=== PATIENT | male | born 1950 | race Caucasian/White ===

== ENCOUNTER → 2016-08-14 | Outpatient (CLI) | payer BC ==
[~2016-08-14] MED LIST: CMD5 PO
[2016-08-14 12:44] LABS: INR 2.5 (0.9-1.1); PROTHROMBIN TIME (PATIENT) 28.2 SECONDS (9.0-12.0)
== END | disposition home or self-care (01) ==
LOC: C.LABSPEC 14:24
PROVIDERS: ATTEND Family Medicine
DX: I82.402 Acute embolism and thrombosis of unspecified deep veins of left lower extremity (principal)

== ENCOUNTER → 2016-09-18 | Outpatient (CLI) | payer BC ==
[2016-09-18 11:34] LABS: INR 2.6 (0.9-1.1); PROTHROMBIN TIME (PATIENT) 28.8 SECONDS (9.0-12.0)
== END | disposition home or self-care (01) ==
LOC: C.LABSPEC 11:09
PROVIDERS: ATTEND Family Medicine
DX: I82.5Z9 Chronic embolism and thrombosis of unspecified deep veins of unspecified distal lower extremity (principal)

== ENCOUNTER → 2016-10-23 | Outpatient (CLI) | payer BC ==
[2016-10-23 14:43] LABS: INR 3.2 (0.9-1.1); PROTHROMBIN TIME (PATIENT) 36.1 SECONDS (9.0-12.0)
== END | disposition home or self-care (01) ==
LOC: C.LABSPEC 13:53
PROVIDERS: ATTEND Family Medicine
DX: I82.5Z9 Chronic embolism and thrombosis of unspecified deep veins of unspecified distal lower extremity (principal)

== ENCOUNTER → 2016-11-11 | Outpatient (CLI) | payer BC ==
[2016-11-11 13:07] LABS: INR 1.3 (0.9-1.1); PROTHROMBIN TIME (PATIENT) 14.6 SECONDS (9.0-12.0)
[2016-11-11 13:09] LABS: CALCIUM 10.1 mg/dl (8.5-10.1)
[2016-11-11 13:20] LABS: ALT/SGPT 41 U/L (12-78); BLOOD UREA NITROGEN 21 mg/dl (7-18); BUN/CREATININE RATIO 21.4 (10-20); CARBON DIOXIDE 26 mmol/L (21-32); CHLORIDE 107 mmol/L (98-107); CHOLESTEROL 214 mg/dl (0-200); CREATININE 0.98 mg/dl (0.60-1.40); GLUCOSE 86 mg/dl (70-99); POTASSIUM 4.4 mmol/L (3.5-5.1); SODIUM 140 mmol/L (136-145); TRIGLYCERIDES 121 mg/dl (0-150); VERY LOW DENSITY LIPOPROT CALC 24 mg/dl
[2016-11-11 13:25] LABS: ALB/GLOB RATIO 1.4 (0.9-2); ALKALINE PHOSPHATASE 67 U/L (45-117); AST/SGOT 22 U/L (15-37); HDL CHOLESTEROL 54 mg/dl; LDL CHOLESTEROL CALCULATED 136 mg/dl
== END | disposition home or self-care (01) ==
LOC: C.LABSPEC 11:23
PROVIDERS: ATTEND Family Medicine
DX: I82.5Z9 Chronic embolism and thrombosis of unspecified deep veins of unspecified distal lower extremity (principal); E78.2 Mixed hyperlipidemia

== ENCOUNTER → 2016-12-10 | Outpatient (CLI) | payer BC ==
[2016-12-10 12:38] LABS: INR 2.9 (0.9-1.1); PROTHROMBIN TIME (PATIENT) 32.8 SECONDS (9.0-12.0)
== END | disposition home or self-care (01) ==
LOC: C.LABSPEC 11:38
PROVIDERS: ATTEND Family Medicine
DX: I82.5Z9 Chronic embolism and thrombosis of unspecified deep veins of unspecified distal lower extremity (principal)

== ENCOUNTER → 2017-01-25 | Outpatient (CLI) | payer BC ==
[2017-01-25 16:36] LABS: INR 2.3 (0.9-1.1); PROTHROMBIN TIME (PATIENT) 25.4 SECONDS (9.0-12.0)
== END | disposition home or self-care (01) ==
LOC: C.LABSPEC 16:07
PROVIDERS: ATTEND Family Medicine
DX: I82.402 Acute embolism and thrombosis of unspecified deep veins of left lower extremity (principal)

== ENCOUNTER → 2017-02-22 | Outpatient (CLI) | payer BC ==
[2017-02-22 17:10] LABS: INR 2.6 (0.9-1.1); PROTHROMBIN TIME (PATIENT) 29.4 SECONDS (9.0-12.0)
== END | disposition home or self-care (01) ==
LOC: C.LABSPEC 16:32
PROVIDERS: ATTEND Family Medicine
DX: I82.402 Acute embolism and thrombosis of unspecified deep veins of left lower extremity (principal)

== ENCOUNTER → 2017-04-12 | Outpatient (CLI) | payer BC ==
[2017-04-12 14:44] LABS: INR 2.6 (0.9-1.1); PROTHROMBIN TIME (PATIENT) 29.4 SECONDS (9.0-12.0)
[2017-04-12 14:57] LABS: ALT/SGPT 36 U/L (12-78); AST/SGOT 23 U/L (15-37); BLOOD UREA NITROGEN 11 mg/dl (7-18); BUN/CREATININE RATIO 12.7 (10-20); CARBON DIOXIDE 26 mmol/L (21-32); CHLORIDE 106 mmol/L (98-107); CHOLESTEROL 203 mg/dl (0-200); CREATININE 0.86 mg/dl (0.60-1.40); GLUCOSE 93 mg/dl (70-99); POTASSIUM 4.4 mmol/L (3.5-5.1); SODIUM 140 mmol/L (136-145)
[2017-04-12 15:05] LABS: ALB/GLOB RATIO 1.4 (0.9-2); ALKALINE PHOSPHATASE 67 U/L (45-117); HDL CHOLESTEROL 41 mg/dl; LDL CHOLESTEROL CALCULATED 104 mg/dl; TRIGLYCERIDES 289 mg/dl (0-150); VERY LOW DENSITY LIPOPROT CALC 58 mg/dl
== END | disposition home or self-care (01) ==
LOC: C.LABSPEC 13:35
PROVIDERS: ATTEND Family Medicine
DX: D68.4 Acquired coagulation factor deficiency (principal); E78.2 Mixed hyperlipidemia

== ENCOUNTER → 2017-05-28 | Outpatient (CLI) | payer BC ==
[2017-05-28 14:07] LABS: INR 2.6 (0.9-1.1); PROTHROMBIN TIME (PATIENT) 29.4 SECONDS (9.0-12.0)
== END | disposition home or self-care (01) ==
LOC: C.LABSPEC 12:56
PROVIDERS: ATTEND Family Medicine
DX: I82.402 Acute embolism and thrombosis of unspecified deep veins of left lower extremity (principal); I82.4Z1 Acute embolism and thrombosis of unspecified deep veins of right distal lower extremity; I82.502 Chronic embolism and thrombosis of unspecified deep veins of left lower extremity; I82.5Z9 Chronic embolism and thrombosis of unspecified deep veins of unspecified distal lower extremity; Z86.711 Personal history of pulmonary embolism

== ENCOUNTER → 2017-07-20 | Outpatient (CLI) | payer BC ==
[2017-07-20 16:17] LABS: INR 2.9 (0.9-1.1)
== END | disposition home or self-care (01) ==
LOC: C.LABSPEC 15:31
PROVIDERS: ATTEND Family Medicine
DX: E78.2 Mixed hyperlipidemia (principal); D68.4 Acquired coagulation factor deficiency

== ENCOUNTER → 2017-08-31 | Outpatient (CLI) | payer BC ==
[2017-08-31 12:48] LABS: INR 1.8 (0.9-1.1)
== END | disposition home or self-care (01) ==
LOC: C.LABSPEC 11:58
PROVIDERS: ATTEND Family Medicine
DX: D68.4 Acquired coagulation factor deficiency (principal)

== ENCOUNTER → 2017-09-28 | Outpatient (CLI) | payer BC ==
[2017-09-28 12:32] LABS: INR 2.3 (0.9-1.1)
== END | disposition home or self-care (01) ==
LOC: C.LABSPEC 11:29
PROVIDERS: ATTEND Family Medicine
DX: D68.4 Acquired coagulation factor deficiency (principal)

== ENCOUNTER → 2017-10-21 | Outpatient (CLI) | payer BC ==
[2017-10-21 14:05] LABS: INR 2.3 (0.9-1.1)
[2017-10-21 14:18] LABS: HEMOGLOBIN A1C 5.8 % (4.5-5.6)
[2017-10-21 14:24] LABS: ALBUMIN 3.9 gm/dl (3.4-5.0); ALT/SGPT 40 U/L (12-78); BLOOD UREA NITROGEN 16 mg/dl (7-18); CALCIUM 9.6 mg/dl (8.5-10.1); CARBON DIOXIDE 28 mmol/L (21-32); CHOLESTEROL 197 mg/dl (0-200); CREATININE 0.98 mg/dl (0.60-1.40); GLUCOSE 89 mg/dl (70-99); POTASSIUM 4.4 mmol/L (3.5-5.1); SODIUM 139 mmol/L (136-145)
[2017-10-21 14:27] LABS: ALKALINE PHOSPHATASE 66 U/L (45-117); AST/SGOT 22 U/L (15-37); LDL CHOLESTEROL CALCULATED 126 mg/dl; TOTAL PROTEIN 6.9 gm/dl (6.4-8.2)
== END | disposition home or self-care (01) ==
LOC: C.LABSPEC 13:42
PROVIDERS: ATTEND Family Medicine
DX: D68.4 Acquired coagulation factor deficiency (principal); E78.2 Mixed hyperlipidemia; R73.01 Impaired fasting glucose

== ENCOUNTER → 2017-12-01 | Outpatient (CLI) | payer MEDICARE ==
[2017-12-01 16:07] LABS: INR 2.1 (0.9-1.1)
== END | disposition home or self-care (01) ==
LOC: C.LABSPEC 11:53
PROVIDERS: ATTEND Family Medicine
DX: D68.4 Acquired coagulation factor deficiency (principal)

== ENCOUNTER → 2018-02-17 | Outpatient (CLI) | payer MEDICARE ==
[2018-02-17 12:03] LABS: INR 1.5 (0.9-1.1)
[2018-02-17 12:05] LABS: ALBUMIN 3.7 gm/dl (3.4-5.0); ALKALINE PHOSPHATASE 66 U/L (45-117); ALT/SGPT 39 U/L (12-78); AST/SGOT 22 U/L (15-37); BLOOD UREA NITROGEN 13 mg/dl (7-18); CARBON DIOXIDE 26 mmol/L (21-32); CHOLESTEROL 196 mg/dl (0-200); CREATININE 0.93 mg/dl (0.60-1.40); GLUCOSE 96 mg/dl (70-99); LDL CHOLESTEROL CALCULATED 112 mg/dl; POTASSIUM 4.4 mmol/L (3.5-5.1); SODIUM 141 mmol/L (136-145); TOTAL PROTEIN 6.6 gm/dl (6.4-8.2)
[2018-02-17 12:13] LABS: HEMOGLOBIN A1C 5.9 % (4.5-5.6)
== END | disposition home or self-care (01) ==
LOC: C.LABSPEC 11:31
PROVIDERS: ATTEND Family Medicine
DX: D68.4 Acquired coagulation factor deficiency (principal); E78.2 Mixed hyperlipidemia; R73.01 Impaired fasting glucose

== ENCOUNTER 2021-05-27 17:20 | Observation (INO) ==
[2021-05-27 19:13] LABS: Basophils # (auto) 0.02 K/uL (0-0.2); Basophils % (auto) 0.2 %; Eosinophils # (auto) 0.03 K/uL (0-0.5); Eosinophils % (auto) 0.3 %; Hematocrit (blood only) 43.6 % (42-52); Immature Granulocytes # (auto) 0.03 K/uL (0.00-0.02); Immature Granulocytes % (auto) 0.3 %; Lymphocytes # (auto) 0.96 K/uL (1.2-3.4); Lymphocytes % (auto) 9.4 %; Mean Corpuscular Hemoglobin 33.1 pg (25-34); Mean Corpuscular Hgb Conc 34.4 g/dL (32-36); Mean Corpuscular Volume 96.2 fL (80-100); Mean Platelet Volume 10.1 fL (7.4-10.4); Monocytes # (auto) 0.89 K/uL (0.11-0.59); Monocytes % (auto) 8.7 %; Neutrophils # (auto) 8.31 K/uL (1.4-6.5); Neutrophils % (auto) 81.1 %; Platelet Count 246 K/uL (130-400); RDW Coefficient of Variation 13.2 % (11.5-14.5); RDW Standard Deviation 46.2 fL (36.4-46.3); Red Blood Count 4.53 M/uL (4.7-6.1); White Blood Count 10.24 K/uL (4.8-10.8)
[2021-05-27 19:31] LABS: Albumin Level 3.7 gm/dl (3.4-5.0); BUN Creatinine Ratio 20.5 (10-20); Calcium 10.3 mg/dl (8.5-10.1); Creatinine Clr Calc Pharmacy 85.6 ml/min; Est GFR (African American) 101.1 ml/min; Est GFR (Non-African American) 87.2 ml/min; Potassium 4.3 mmol/L (3.5-5.1)
[2021-05-27 19:34] LABS: Bilirubin,Total 0.4 mg/dl (0.2-1); Globulin 3.6 gm/dl (2.5-4.0); Total Protein 7.3 gm/dl (6.4-8.2)
[2021-05-27 19:35] LABS: Appearance Urine Clear (Clear); Bilirubin Urine Negative (Negative); Blood Urine Negative (Negative); Color Urine Yellow; Glucose Urine UA Negative (Negative); Ketones Urine Negative (Negative); Leukocyte Esterase Urine Negative (Negative); Nitrite Urine Negative (Negative); Protein Urine Negative (Negative); Specific Gravity Urine 1.029 (1.000-1.030); Urobilinogen Urine Negative (Negative)
[2021-05-27] MEDS ORDERED: ONDANSETRON INJ 2 MG/ML 2 ML VIAL IV STA (20:02)
[2021-05-27] MEDS ORDERED: SODIUM CHLORIDE 0.9% 500 ML IV ONE (20:02)
[2021-05-27] MEDS ORDERED: MoRPHine SULFATE 4 MG/ML 1 ML CARP\\VIAL IV STA (20:08)
--- NOTE | 2021-05-27 20:11 | Emergency Department Note ---
Impression & Plan Abdominal pain, Rectus sheath hematoma, Chronic anticoagulation, Extravasation of blood ED Provider Note NAME: MICHAEL WU AGE: 70 SEX: M : 1950 ARRIVES VIA: Walk-In INFORMANT: Patient ED PROVIDER(S): Norbert Patel DO CHIEF COMPLAINT: Abdominal pain HPI: Patient is a 70-year-old male who presents ER for right lower quadrant abdominal pain. He has been having pain intermittently for the past 2 weeks. He thinks is probably the same pain but is in the 100% sure. This morning started in the right lower quadrant has been constant. He has associated nausea but no vomiting. No dysuria, urgency, or frequency. It does radiate out to the right side. No cough or runny nose. No loss of taste or smell. No previous abdominal surgeries with the exception of a hernia repair. No other exacerbating or remitting factors. ROS: See above HPI for pertinent positives & negatives. A total of 10 systems reviewed and were otherwise negative. PAST MEDICAL HISTORY:See Below PAST SURGICAL HISTORY:See Below FAMILY HISTORY:See Below SOCIAL HISTORY:See Below HOME MEDICATIONS:See Below ALLERGIES:See Below VITALS:See Below PHYSICAL EXAMINATION: GENERAL: Sitting up in bed, alert, well appearing, well nourished, no distress, non-toxic EYE EXAM: normal conjunctiva. OROPHARYNX: mask in place NECK: supple, no nuchal rigidity, no adenopathy, non-tender LUNGS: Clear to auscultation. Normal chest wall mechanics HEART: no murmurs, S1 normal and S2 normal ABDOMEN: abdomen soft, tender palpation right lower, normo-active bowel sounds, no masses, no rebound or guarding. UPPER EXTREMITIES: upper extremities are grossly normal. LOWER EXTREMITIES: No pitting edema. Calves are ago bilateral NEURO EXAM: Normal sensorium, cranial nerves II-XII grossly intact, normal speech, no gross weakness of arms, no gross weakness of legs. MEDICAL DECISION MAKING: Patient is a 70-year-old male whose vitals are stable with mild bradycardia that presents the ER for right lower quadrant abdominal pain Coumadin. Takes Coumadin for previous blood clot several years ago. IV was established blood was obtained. Labs show no significant leukocytosis. Hemoglobin of 15. INR at 2.5. BMP with a slightly elevated chloride at 110. Calcium was slightly high at 10.3. LFTs bilirubin were negative. Lipase was elevated at 948. UA was clean. Covid negative. Patient was typed and crossed. CT showed rectus sheath hematoma with active extravasation. Discussed with Octavio who evaluate the patient bedside from general surgery. Patient was already given IV vitamin K 10 units. He agreed with IV vitamin K and recommended holding on Kcentra which is reasonable as the patient's vitals are stable at this time. Discussed with the hospitalist patient was admitted for further work-up and observation. Patient was updated bedside. Triage Nursing notes reviewed. Limited review of prior medical records performed Vital Signs: reviewed and remarkable for HTN Differential diagnosis: Differential diagnoses includes but is not limited to gastritis, peptic ulcer disease, GERD, gallbladder disease, pancreatitis, small bowel obstruction, acute coronary syndrome, pericarditis, ischemic bowel, irritable bowel disease, irritable bowel syndrome, appendicitis, diverticulitis, malignancy, hernia, urinary tract infection, torsion, perforation, trauma, infectious. ER treatment provided: See below Diagnostics interpreted by me: ECG: none Cardiac Monitoring: An order was placed for continuous cardiac monitoring. The monitor shows a rate of 52 with sinus rhythm. Laboratory studies: As stated above and show below. Imaging studies: IMPRESSION: 1. There is a large right rectus sheath hematoma as detailed above with foci of active extravasation 2. There is trace intrapelvic extraperitoneal hemorrhage just deep to the rectus sheath hematoma. 3. No intraperitoneal hemorrhage is identified. 4. There is no CT evidence of acute pancreatitis as clinically queried. 5. Additional findings as above. Consultation(s): none Procedures: none Critical Care: None Past Med/Surg History Medical History (Updated 05/28/21 @ 01:03 by Norbert Patel DO) Bradycardia CHRONIC; BASELINE IN 40'S PER PATIENT- REMOTE "NORMAL" HOLTER MONITOR PER PATIENT Deep vein thrombosis (DVT) 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- ON [facility] Hyperlipidemia Obesity Pulmonary embolism 2016- ON [facility] Surgical History Fusion of spine CERVICAL History of colonoscopy History of herniorrhaphy History of tonsillectomy Social History Smoking Status: Never smoker Second Hand Exposure: No; Hx Alcohol Use: No Hx Substance Use: No Preferred Language: Serbian Communication Ability: Effective Visual Impairment: No Limitations Tail Sawyer Required: No Beliefs That Will Affect Care: None Current Living Situation: Spouse Feels Safe at Home: Yes Assistive Devices: None Allergies Allergies Allergy/AdvReac Type Severity Reaction Status Date / Time chlorhexidine Allergy Severe PRURITIS Verified 05/27/21 20:10 aspirin Allergy Unknown HIVES Verified 05/27/21 20:10 bee venom protein (honey bee) Allergy SWELLING Verified 05/27/21 20:10 Home Meds Home Medications Medication Instructions Recorded Confirmed atorvastatin 20 mg tablet 20 mg PO HS 08/08/18 05/27/21 bupropion HCl 150 mg 24 hr tablet, 150 mg PO DAILY 05/27/21 05/27/21 extended release escitalopram oxalate 10 mg tablet 10 mg PO DAILY 05/27/21 05/27/21 warfarin 1 mg tablet 2 mg PO DAILY 05/27/21 05/27/21 warfarin 5 mg tablet 5 mg PO DAILY 05/27/21 05/27/21 Results & Data (ED) Vital Signs Vital Signs - 24 hr 05/27/21 17:49 05/27/21 20:55 05/27/21 22:00 Temperature 36.7 C Temperature Source Temporal Artery Scan Pulse Rate 50 L Pulse Rate [Finger] 51 L 50 L Pulse Rhythm Regular Pulse Strength Normal Respiratory Rate 20 16 18 Respiratory Effort / Characteristics Non-Labored Spontaneous Respiratory Depth Normal Respiratory Pattern Regular Blood Pressure 143/90 H Blood Pressure [Right Arm] 164/90 H 168/83 H Blood Pressure Mean 107 Blood Pressure Mean [Right Arm] 114 111 Blood Pressure Position Sitting Pulse Oximetry 96 95 95 Oxygen Delivery Method Room Air Room Air Sepsis Recent Fever Within 48 Hours No Sepsis New/Unexplained Change in Mental Status No Sepsis Action Taken by Nursing No Action Required Laboratory Data Result diagrams: 05/27/21 19:03 05/27/21 19:03 Lab Results 05/27/21 05/27/21 05/27/21 Range/Units 19:03 19:03 19:04 WBC 10.24 (4.8-10.8) K/uL RBC 4.53 L (4.7-6.1) M/uL Hgb 15.0 (14.0-18.0) g/dL Hct 43.6 (42-52) % MCV 96.2 (80-100) fL MCH 33.1 (25-34) pg MCHC 34.4 (32-36) g/dL RDW Std Deviation 46.2 (36.4-46.3) fL RDW Coeff of Sammy 13.2 (11.5-14.5) % Plt Count 246 (130-400) K/uL MPV 10.1 (7.4-10.4) fL Immature Gran % (Auto) 0.3 % Neut % (Auto) 81.1 % Lymph % (Auto) 9.4 % [place] % (Auto) 8.7 % Eos % (Auto) 0.3 % Baso % (Auto) 0.2 % Neut # (Auto) 8.31 H (1.4-6.5) K/uL Lymph # (Auto) 0.96 L (1.2-3.4) K/uL [place] # (Auto) 0.89 H (0.11-0.59) K/uL Eos # (Auto) 0.03 (0-0.5) K/uL Baso # (Auto) 0.02 (0-0.2) K/uL Immature Gran # (Auto) 0.03 H (0.00-0.02) K/uL PT (9.0-12.0) Seconds INR (0.9-1.1) Sodium 139 (136-145) mmol/L Potassium 4.3 (3.5-5.1) mmol/L Chloride 110 H (98-107) mmol/L Carbon Dioxide 23 (21-32) mmol/L Anion Gap 6.0 (3-11) BUN 18 (7-18) mg/dl Creatinine 0.89 (0.6-1.4) mg/dl Est Cr Clr Drug Dosing 85.6 ml/min Est GFR ( Amer) 101.1 ml/min Est GFR (Non-Af Amer) 87.2 ml/min BUN/Creatinine Ratio 20.5 H (10-20) Glucose 104 H (70-99) mg/dl Calcium 10.3 H (8.5-10.1) mg/dl Total Bilirubin 0.4 (0.2-1) mg/dl AST 27 (15-37) U/L ALT 38 (12-78) U/L Alkaline Phosphatase 66 (45-117) U/L Total Protein 7.3 (6.4-8.2) gm/dl Albumin 3.7 (3.4-5.0) gm/dl Globulin 3.6 (2.5-4.0) gm/dl Albumin/Globulin Ratio 1.0 (0.9-2) Lipase 948 H (73-393) U/L Urine Color Yellow Urine Appearance Clear (Clear) Urine pH 5.0 (4.5-7.5) Ur Specific Blanchard 1.029 (1.000-1.030) Urine Protein Negative (Negative) Urine Glucose (UA) Negative (Negative) Urine Ketones Negative (Negative) Urine Blood Negative (Negative) Urine Nitrite Negative (Negative) Urine Bilirubin Negative (Negative) Urine Urobilinogen Negative (Negative) Ur Leukocyte Esterase Negative (Negative) COVID-19 Eval Order SARS-CoV-2 (PCR) (Negative) Blood Type Antibody Screen Crossmatch 05/27/21 05/27/21 05/27/21 Range/Units 21:35 21:36 22:09 WBC (4.8-10.8) K/uL RBC (4.7-6.1) M/uL Hgb (14.0-18.0) g/dL Hct (42-52) % MCV (80-100) fL MCH (25-34) pg MCHC (32-36) g/dL RDW Std Deviation (36.4-46.3) fL RDW Coeff of Sammy (11.5-14.5) % Plt Count (130-400) K/uL MPV (7.4-10.4) fL Immature Gran % (Auto) % Neut % (Auto) % Lymph % (Auto) % [place] % (Auto) % Eos % (Auto) % Baso % (Auto) % Neut # (Auto) (1.4-6.5) K/uL Lymph # (Auto) (1.2-3.4) K/uL [place] # (Auto) (0.11-0.59) K/uL Eos # (Auto) (0-0.5) K/uL Baso # (Auto) (0-0.2) K/uL Immature Gran # (Auto) (0.00-0.02) K/uL PT 23.4 H (9.0-12.0) Seconds INR 2.5 H (0.9-1.1) Sodium (136-145) mmol/L Potassium (3.5-5.1) mmol/L Chloride (98-107) mmol/L Carbon Dioxide (21-32) mmol/L Anion Gap (3-11) BUN (7-18) mg/dl Creatinine (0.6-1.4) mg/dl Est Cr Clr Drug Dosing ml/min Est GFR ( Amer) ml/min Est GFR (Non-Af Amer) ml/min BUN/Creatinine Ratio (10-20) Glucose (70-99) mg/dl Calcium (8.5-10.1) mg/dl Total Bilirubin (0.2-1) mg/dl AST (15-37) U/L ALT (12-78) U/L Alkaline Phosphatase (45-117) U/L Total Protein (6.4-8.2) gm/dl Albumin (3.4-5.0) gm/dl Globulin (2.5-4.0) gm/dl Albumin/Globulin Ratio (0.9-2) Lipase (73-393) U/L Urine Color Urine Appearance (Clear) Urine pH (4.5-7.5) Ur Specific [place] (1.000-1.030) Urine Protein (Negative) Urine Glucose (UA) (Negative) Urine Ketones (Negative) Urine Blood (Negative) Urine Nitrite (Negative) Urine Bilirubin (Negative) Urine Urobilinogen (Negative) Ur Leukocyte Esterase (Negative) COVID-19 Eval Order Covid19 at [facility] SARS-CoV-2 (PCR) (Negative) Blood Type A Positive Antibody Screen NEGATIVE Crossmatch See Detail 05/27/21 Range/Units 22:09 WBC (4.8-10.8) K/uL RBC (4.7-6.1) M/uL Hgb (14.0-18.0) g/dL Hct (42-52) % MCV (80-100) fL MCH (25-34) pg MCHC (32-36) g/dL RDW Std Deviation (36.4-46.3) fL RDW Coeff of Sammy (11.5-14.5) % Plt Count (130-400) K/uL MPV (7.4-10.4) fL Immature Gran % (Auto) % Neut % (Auto) % Lymph % (Auto) % [place] % (Auto) % Eos % (Auto) % Baso % (Auto) % Neut # (Auto) (1.4-6.5) K/uL Lymph # (Auto) (1.2-3.4) K/uL [place] # (Auto) (0.11-0.59) K/uL Eos # (Auto) (0-0.5) K/uL Baso # (Auto) (0-0.2) K/uL Immature Gran # (Auto) (0.00-0.02) K/uL PT (9.0-12.0) Seconds INR (0.9-1.1) Sodium (136-145) mmol/L Potassium (3.5-5.1) mmol/L Chloride (98-107) mmol/L Carbon Dioxide (21-32) mmol/L Anion Gap (3-11) BUN (7-18) mg/dl Creatinine (0.6-1.4) mg/dl Est Cr Clr Drug Dosing ml/min Est GFR ( Amer) ml/min Est GFR (Non-Af Amer) ml/min BUN/Creatinine Ratio (10-20) Glucose (70-99) mg/dl Calcium (8.5-10.1) mg/dl Total Bilirubin (0.2-1) mg/dl AST (15-37) U/L ALT (12-78) U/L Alkaline Phosphatase (45-117) U/L Total Protein (6.4-8.2) gm/dl Albumin (3.4-5.0) gm/dl Globulin (2.5-4.0) gm/dl Albumin/Globulin Ratio (0.9-2) Lipase (73-393) U/L Urine Color Urine Appearance (Clear) Urine pH (4.5-7.5) Ur Specific [place] (1.000-1.030) Urine Protein (Negative) Urine Glucose (UA) (Negative) Urine Ketones (Negative) Urine Blood (Negative) Urine Nitrite (Negative) Urine Bilirubin (Negative) Urine Urobilinogen (Negative) Ur Leukocyte Esterase (Negative) COVID-19 Eval Order SARS-CoV-2 (PCR) NEGATIVE (Negative) Blood Type Antibody Screen Crossmatch Administered Medications Discontinued Medications Sodium Chloride (Nss) 500 mls @ 999 mls/hr IV .Q31M ONE Stop: 05/27/21 20:32 Last Infusion: 05/27/21 23:01 Dose: 0 mls/hr Documented by: [id number] Admin: 05/27/21 20:41 Dose: 999 mls/hr Documented by: [id number] Phytonadione 10 mg/ Sodium (Chloride) 51 mls @ 102 mls/hr IV ONE ONE Stop: 05/27/21 21:51 Last Admin: 05/27/21 22:35 Dose: 102 mls/hr Documented by: [id number] Ioversol (Optiray 320 100ml) 90 ml IV ONCE ONE Stop: 05/27/21 20:33 Last Admin: 05/27/21 20:32 Dose: 90 ml Documented by: [id number] Morphine Sulfate (Morphine Sulfate 4 Mg/Ml 1 Ml Carp\\Vial) 4 mg IV NOW STA Stop: 05/27/21 20:09 Last Admin: 05/27/21 20:41 Dose: 4 mg Documented by: [id number] Ondansetron HCl (Ondansetron Inj 2 Mg/Ml 2 Ml Vial) 4 mg IV NOW STA Stop: 05/27/21 20:03 Last Admin: 05/27/21 20:41 Dose: 4 mg Documented by: [id number] Imaging Data Radiologist's Impression: Abdomen/Pelvis CT 05/27/21 20:02 CT SCAN OF THE ABDOMEN AND PELVIS WITH IV CONTRAST CLINICAL HISTORY: Generalized abdominal pain. Elevated lipase. COMPARISON STUDY: No priors. TECHNIQUE: Following the IV administration of 90 cc of Optiray 320, CT scan of the abdomen and pelvis is performed from the lung bases to the proximal femora. Images are reviewed in the axial, sagittal, and coronal planes. IV contrast was administered without complication. A dose lowering technique was utilized adhering to the principles of ALARA. CT DOSE: 750.40 mGy.cm FINDINGS: Lung bases: The heart is normal in size and without pericardial effusion. There are coronary artery calcifications. A tiny hiatal hernia is noted. There are scattered calcified granulomas. The lung bases are otherwise clear noting dependent atelectasis. Liver: The contrast-enhanced liver is normal in size, contour, and attenuation. There is no intrahepatic biliary ductal dilatation. The hepatic veins and portal veins are patent. Gallbladder: Unremarkable. Spleen: Normal in size and attenuation. Pancreas: Mildly atrophic and grossly unremarkable. Adrenal glands: Unremarkable. Kidneys: The contrast enhanced kidneys are normal in size and without hydronephrosis. The kidneys enhance symmetrically. 2 subcentimeter cortical hypodensities in the right kidney likely represent cysts but are too small for definitive characterization. Abdominal vasculature: The abdominal aorta is normal in course and caliber noting moderate atherosclerotic calcification. Bowel: There are scattered colonic diverticula without CT evidence of acute diverticulitis. No bowel obstruction is seen. A tiny duodenal diverticulum is incidentally noted. The appendix is well-visualized and normal. Peritoneum: There is no intraperitoneal free air or abdominal ascites. There is a fat-containing umbilical hernia. There is a large right rectus sheath hematoma with surrounding infiltration. This extends from the umbilicus in the pelvis and measures approximately 12.5 x 5 x 8.5 cm. This demonstrates foci of active extravasation is seen on image #353. There is trace intrapelvic extraperitoneal hemorrhage seen on axial image #394. Lymphadenopathy: None. Pelvic viscera: The bladder, prostate, and seminal vesicles are normal as visualized. Skeletal structures: There is mild to moderate lumbosacral spondylosis. No lytic or blastic lesions are seen. IMPRESSION: 1. There is a large right rectus sheath hematoma as detailed above with foci of active extravasation 2. There is trace intrapelvic extraperitoneal hemorrhage just deep to the rectus sheath hematoma. 3. No intraperitoneal hemorrhage is identified. 4. There is no CT evidence of acute pancreatitis as clinically queried. 5. Additional findings as above. ACT 112: Negative or not required by law. Electronically signed by: Jonny Padilla M.D. 05/27/2021 8:52 PM Discharge Plan Visit Data Chief Complaint: Abdominal Pain Stated Complaint: LOWER RIGHT ABDOMINAL PAIN, NAUSEA ED Provider: Norbert Patel Discharge Problem: Abdominal pain, Rectus sheath hematoma, Chronic anticoagulation, Extravasation of blood Discharge Instructions Interventions: ED Discharge Assessment Last Done: 05/28/21 00:21
[2021-05-27] MEDS ORDERED: OPTIRAY 320 100ml IV ONE (20:32)
--- NOTE | 2021-05-27 20:54 | CT Scan Report ---
CT SCAN OF THE ABDOMEN AND PELVIS WITH IV CONTRAST CLINICAL HISTORY: Generalized abdominal pain. Elevated lipase. COMPARISON STUDY: No priors. TECHNIQUE: Following the IV administration of 90 cc of Optiray 320, CT scan of the abdomen and pelvi s is performed from the lung bases to the proximal femora. Images are reviewed in the axial, sagittal , and coronal planes. IV contrast was administered without complication. A dose lowering technique wa s utilized adhering to the principles of ALARA. CT DOSE: 750.40 mGy.cm FINDINGS: Lung bases: The heart is normal in size and without pericardial effusion. There are coronary artery c alcifications. A tiny hiatal hernia is noted. There are scattered calcified granulomas. The lung base s are otherwise clear noting dependent atelectasis. Liver: The contrast-enhanced liver is normal in size, contour, and attenuation. There is no intrahepa tic biliary ductal dilatation. The hepatic veins and portal veins are patent. Gallbladder: Unremarkable. Spleen: Normal in size and attenuation. Pancreas: Mildly atrophic and grossly unremarkable. Adrenal glands: Unremarkable. Kidneys: The contrast enhanced kidneys are normal in size and without hydronephrosis. The kidneys enh ance symmetrically. 2 subcentimeter cortical hypodensities in the right kidney likely represent cysts but are too small for definitive characterization. Abdominal vasculature: The abdominal aorta is normal in course and caliber noting moderate atheroscle rotic calcification. Bowel: There are scattered colonic diverticula without CT evidence of acute diverticulitis. No bowel obstruction is seen. A tiny duodenal diverticulum is incidentally noted. The appendix is well-visual ized and normal. Peritoneum: There is no intraperitoneal free air or abdominal ascites. There is a fat-containing umbi lical hernia. There is a large right rectus sheath hematoma with surrounding infiltration. This exten ds from the umbilicus in the pelvis and measures approximately 12.5 x 5 x 8.5 cm. This demonstrates f oci of active extravasation is seen on image #353. There is trace intrapelvic extraperitoneal hemorrh age seen on axial image #394. Lymphadenopathy: None. Pelvic viscera: The bladder, prostate, and seminal vesicles are normal as visualized. Skeletal structures: There is mild to moderate lumbosacral spondylosis. No lytic or blastic lesions a re seen. IMPRESSION: 1. There is a large right rectus sheath hematoma as detailed above with foci of active extravasation 2. There is trace intrapelvic extraperitoneal hemorrhage just deep to the rectus sheath hematoma. 3. No intraperitoneal hemorrhage is identified. 4. There is no CT evidence of acute pancreatitis as clinically queried. 5. Additional findings as above. ACT 112: Negative or not required by law. Electronically signed by: Jonny Padilla M.D. 05/27/2021 8:52 PM
[2021-05-27] MEDS ORDERED: PHYTONADIONE 10 MG in SODIUM CHLORIDE 0.9% 50 ML IV ONE (21:22)
[2021-05-27] MEDS ORDERED: SODIUM CHLORIDE 0.9% 250 ML IV PRN (21:35)
--- NOTE | 2021-05-27 21:41 | Surgery Consultation ---
Date of Consultation May 27, 2021 Assessment & Plan (1) Rectus sheath hematoma: I suspect the patient's rectus sheath hematoma likely occurred during some of his physical activity as described (climbing up his tree stand, lifting heavy objects) coupled with the fact that he takes Coumadin. I discussed with the treating emergency room physician he is planning on having the hospitalist admit the patient for observation. We recommend proceeding as follows: Follow hemoglobin and hematocrits every 6 hours Check an INR. This is being drawn at the present time Hold patient's Coumadin. Consider reversing the patient's Coumadin. The treating emergency physician says that he is ordering vitamin K, 10 mg. If the patient's INR is found to be markedly elevated and he becomes hemodynamically unstable consideration can be given to more rapid reversal of his INR which would include modalities such as fresh frozen plasma or prothrombin complex concentrates. Follow serial INR levels. Follow serial abdominal exams. Iteration can be given to resuming patient's Coumadin if his abdominal exam and hemoglobin and hematocrit remained stable. Type and cross for 2 units of packed red blood cells. We will not order transfusion at this time as the patient's hemoglobin hematocrit are normal and he is hemodynamically stable. Use SCDs for DVT prophylaxis. No chemical means due to the fact that the patient already takes Coumadin which is being held due to concern for his rectus sheath hematoma. I did discuss with the patient the treatment options. As patient is asymptomatic other than some abdominal pain and hemodynamically stable the above plan will be implemented. I did discuss with the patient that we rarely operate on these it is difficult to find any site of active bleeding. Patient would require intervention due to active bleeding typically these patients are refe rred for interventional radiology and cough with consideration of embolization. We will continue following with the patient is hospitalized Supervising Physician Co-Signing Physician Notes Dr. Anthony-patient is resting comfortably in his bed, he has had no significant pain medication throughout the night His vital signs are stable and his hematocrit did not drop significantly during the evening-I suspect it will drop some over time With hydration. Continue to monitor his blood count, will give him a diet as I do not think we will require surgery Obviously hold off on anticoagulation for now-would not give patient Lovenox. History of Present Illness Reason for Consultation: Rectus sheath hematoma, right-sided History of Present Illness This is a 70-year-old male who presented to [facility] secondary abdominal pain that began earlier today. Patient says that the pain is primarily located along the right side of his abdomen. He does not note any palliative or provocative factors other than pain medicine that was administered in the emergency department. He does not note any radiation of the pain. He denies any nausea or vomiting. He denies any fevers, shakes, chills. I did question the patient about any trauma to his abdomen which he denies. He did however admit that he has been climbing up and down a tree stand and also lifting heavy firewood and says it is possible he had male may have felt a pull or a pop in his abdominal musculature. He denies any chest pain. He denies any shortness of breath, lightheadedness or dizziness. It is also noteworthy mention that the patient does take Coumadin for history of DVT and PE. He notes that this happened in approximately 2013 and he has not had any issues with these medical problems since that time. He did add that he did not take his Coumadin today. In the emergency department the patient had labs and imaging which were independently reviewed. CBC revealed white blood cell count, hemoglobin, hem atocrit, and platelet count are all within normal range. Chemistry profile showed sodium, potassium, BUN, and creatinine were all within normal range. Urinalysis was not indicative of infection. Patient underwent a CT scan of the abdomen and pelvis that showed a large right rectus sheath hematoma with an area of active extravasation noted. There is also some trace intrapelvic extraperitoneal hemorrhage deep to the rectus sheath. No intraperitoneal hemorrhage was identified. At the time of interview the patient is resting comfortably in bed in no distress Allergies Allergy/AdvReac Type Severity Reaction Status Date / Time chlorhexidine Allergy Severe PRURITIS Verified 05/27/21 20:10 aspirin Allergy Unknown HIVES Verified 05/27/21 20:10 bee venom protein (honey bee) Allergy SWELLING Verified 05/27/21 20:10 Home Medications Medication Instructions Recorded Confirmed Type atorvastatin 20 mg tablet 20 mg PO HS 08/08/18 05/27/21 History bupropion HCl 150 mg 24 hr tablet, 150 mg PO DAILY 05/27/21 05/27/21 History extended release escitalopram oxalate 10 mg tablet 10 mg PO DAILY 05/27/21 05/27/21 History warfarin 1 mg tablet 2 mg PO DAILY 05/27/21 05/27/21 History warfarin 5 mg tablet 5 mg PO DAILY 05/27/21 05/27/21 History Patient History Medical History (Updated 05/28/21 @ 01:03 by Norbert Patel DO) Bradycardia CHRONIC; BASELINE IN 40'S PER PATIENT- REMOTE "NORMAL" HOLTER MONITOR PER PATIENT Deep vein thrombosis (DVT) 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- ON WARFARIN Hyperlipidemia Obesity Pulmonary embolism 2016- ON WARFARIN Surgical History Fusion of spine CERVICAL History of colonoscopy History of herniorrhaphy History of tonsillectomy Social History Smoking Status: Never smoker Second Hand Exposure: No; Do You Dip or Chew Tobacco: No; Tobacco Cessation Education Requested by Patient: No Hx Alcohol Use: Yes Alcohol type: beer Hx Substance Use: No Preferred Language: Canadian Communication Ability: Effective Visual Impairment: No Limitations [employer] Operations Required: No Beliefs That Will Affect Care: None Current Living Situation: Alone Other Information That Helps Us Care for You: No Feels Safe at Home: Yes Safety Concerns: Feels Safe At This Time Assistive Devices: Glasses Review of Systems Constitutional: no fever and no chills Eyes: no diplopia Ear, Nose, Mouth, Throat: no ear pain and no sore throat Respiratory: no dyspnea Cardiovascular: no chest pain, no palpitations, no lightheadedness and no syncope Gastrointestinal: + abdominal pain; no nausea and no vomiting Genitourinary: no dysuria Integumentary: no rash Neurologic: no localized weakness Physical Exam Constitutional: well developed and well nourished; no acute distress Eyes: no conjunctival abnormality ENMT: Ears: no hearing impairment Mouth: no oropharynx abnormality Neck: trachea midline Respiratory: normal respiratory effort; no respiratory distress and no labored breathing Cardiovascular: Rate/Rhythm: regular rate and regular rhythm Gastrointestinal (Abdomen): Patient's abdomen is nondistended. There is no rebound tenderness or guarding. The patient did have a palpable mass along the right rectus musculature consistent with findings on CT scan. This area was painful to palpation. Similar findings were absent on the left rectus musculature. There is no bruising or ecchymosis of his abdomen noted. Musculoskeletal: No calf tenderness Skin: normal turgor Neurologic: moves all extremities Psychiatric: A+Ox3, euthymic affect Results & Data ([facility]) Vital Signs (Past 12 Hours) Vital Signs Temp Pulse Pulse Resp BP BP Pulse Ox 05/27/21 20:55 51 L 16 164/90 H 95 05/27/21 17:49 36.7 C 50 L 20 143/90 H 96 PG Care Time/CCT Total # of Minutes Spent Total Time Spent with Patient: Total time spent is greater than 50% in coordination of care (as documented) at patient's floor/unit and/or counseling patient: Coding Level of Care Code 12846 Inpt Consult Level 5 Diagnoses Rectus sheath hematoma S30.1XXA
[2021-05-27 22:24] LABS: INR 2.5 (0.9-1.1); Prothrombin Time 23.4 Seconds (9.0-12.0)
--- NOTE | 2021-05-27 23:05 | History & Physical Report ---
Date of Service May 27, 2021 Assessment & Plan (1) Rectus sheath hematoma: Plan: 70-year-old male with a past medical history of DVT and PE now on chronic anticoagulation with warfarin, found to have a rectus sheath hematoma and admitted for management. Rectus sheath hematoma Noted on CT abdomen pelvis as above. Given note of foci of active extravasation, received 10 mg of IV vitamin K for warfarin reversal in the ER. INR 2.5 prior to vitamin K, will trend Hemoglobin 15, patient consented for blood transfusion to units of packed RBCs held, trending hemoglobins Holding warfarin in setting of this bleed, however given high risk for DVT and PE, will use thigh-high SCDs for DVT prophylaxis IV Protonix twice daily for gastric protection FOBT ordered for evaluation of GI bleed will likely require interventional radiology if worsening however at this time appears stable, will proceed with conservative management and close monitoring Ceftriaxone 1 g daily for infectious prophylaxis given borderline white count of 10.2 with neutrophilic predominance Elevated lipase 948, meets minimum criteria for pancreatitis however more likely acute reaction to inflammation surrounding hematoma We will continue to monitor for worsening pain or nausea/vomiting No evidence for pancreatitis on CT abdomen pelvis Chronic conditions Depression: Continue bupropion and Lexapro Hyperlipidemia: Continue atorvastatin DVT ppx: SCD thighs, chemical contraindicated in setting of acute bleeding FEN/GI: liquid diet, PPI IV BID Bowel regimen: prn miralax Code Status: fullcode Dispo:PCU (2) DVT (deep venous thrombosis): (3) Chronic anticoagulation: (4) Hyperlipidemia: (5) Depression: History of Present Illness Primary Care Provider: Iftikhar López 70-year-old male with a past medical history of bilateral DVT on chronic anticoagulation with Coumadin, hyperlipidemia who presents to the emergency department for acute onset abdominal pain. He states that approximately a month ago he was lifting and moving logs and felt a sharp tearing pain in his right lower quadrant. The pain went away and he thought nothing of it at that time. He continued to have some pain at that location after twisting or moving around but did not find it to be particularly bothersome. He notes that today he started having severe right-sided abdominal pain as well as some nausea. He states that he has never had any issues with severe bleeding events while on Coumadin before. He denies any hematuria but does attest to having some black stools recently. He denies any dizziness or lightheadedness. He states the pain is a 6 out of 10 at rest and increases to a 7 or 8 out of 10 when actively moving. He denies any radiation of the pain and says that it is mostly on his right abdomen going down into his right suprapubic area. Allergies Allergy/AdvReac Type Severity Reaction Status Date / Time chlorhexidine Allergy Severe PRURITIS Verified 05/27/21 20:10 aspirin Allergy Unknown HIVES Verified 05/27/21 20:10 bee venom protein (honey bee) Allergy SWELLING Verified 05/27/21 20:10 Home Medications Medication Instructions Recorded Confirmed Type atorvastatin 20 mg tablet 20 mg PO HS 08/08/18 05/27/21 History bupropion HCl 150 mg 24 hr tablet, 150 mg PO DAILY 05/27/21 05/27/21 History extended release escitalopram oxalate 10 mg tablet 10 mg PO DAILY 05/27/21 05/27/21 History warfarin 1 mg tablet 2 mg PO DAILY 05/27/21 05/27/21 History warfarin 5 mg tablet 5 mg PO DAILY 05/27/21 05/27/21 History Past Med/Surg History Medical History (Updated 05/28/21 @ 10:51 by Shanice Long MD) Bradycardia CHRONIC; BASELINE IN 40'S PER PATIENT- REMOTE "NORMAL" HOLTER MONITOR PER PATIENT Deep vein thrombosis (DVT) 2015- B/L LE DVT- ON WARFARIN Hyperlipidemia Obesity Pulmonary embolism 2016- ON WARFARIN Surgical History Fusion of spine CERVICAL History of colonoscopy History of herniorrhaphy History of tonsillectomy Social History Smoking Status: Never smoker Second Hand Exposure: No; Do You Dip or Chew Tobacco: No; Tobacco Cessation Education Requested by Patient: No Hx Alcohol Use: Yes Alcohol type: beer Hx Substance Use: No Preferred Language: Japanese Communication Ability: Effective Visual Impairment: No Limitations [employer] Applications Analyst Required: No Beliefs That Will Affect Care: None Current Living Situation: Alone How many Children do You have: 3 Other Information That Helps Us Care for You: No Feels Safe at Home: Yes Safety Concerns: Feels Safe At This Time Assistive Devices: None Review of Systems Review of Systems: All systems reviewed & are unremarkable except as noted in Subjective Physical Exam Physical Exam: Constitutional: obese, in no apparent distress, sitting up comfortably in bed. Eyes: EOMI, pupils equal and reactive bilaterally, no scleral icterus Cardiac: RRR, no murmurs, gallops or rubs. Normal S1, S2 Pulm: CTA BL, no wheezes, rhonchi, crackles or rubs, moving air well throughout both lungs Abd: somwhat distended, firm to touch on right abdomen, tender to palpation, normal bowel sounds, no overlying bruising, visible swelling/distension down to suprapubic area on right.left side nontender, less distended. Extremities: 2+ peripheral pulses, no edema Neuro: no focal deficits, moving all 4 limbs, A&Ox3 Results & Data Results & Data ([facility]) Vital Signs (Past 12 Hours) Vital Signs Temp Pulse Pulse Resp BP BP Pulse Ox 05/27/21 22:00 50 L 18 168/83 H 95 05/27/21 20:55 51 L 16 164/90 H 95 05/27/21 17:49 36.7 C 50 L 20 143/90 H 96 Laboratory Results Laboratory Results WBC 10.24 K/uL (4.8-10.8) 05/27/21 19:03 RBC 4.53 M/uL (4.7-6.1) L 05/27/21 19:03 Hgb 15.0 g/dL (14.0-18.0) 05/27/21 19:03 Hct 43.6 % (42-52) 05/27/21 19:03 MCV 96.2 fL (80-100) 05/27/21 19:03 MCH 33.1 pg (25-34) 05/27/21 19:03 MCHC 34.4 g/dL (32-36) 05/27/21 19:03 RDW Std Deviation 46.2 fL (36.4-46.3) 05/27/21 19:03 RDW Coeff of Sammy 13.2 % (11.5-14.5) 05/27/21 19:03 Plt Count 246 K/uL (130-400) 05/27/21 19:03 MPV 10.1 fL (7.4-10.4) 05/27/21 19:03 Immature Gran % (Auto) 0.3 % 05/27/21 19:03 Neut % (Auto) 81.1 % 05/27/21 19:03 Lymph % (Auto) 9.4 % 05/27/21 19:03 [place] % (Auto) 8.7 % 05/27/21 19:03 Eos % (Auto) 0.3 % 05/27/21 19:03 Baso % (Auto) 0.2 % 05/27/21 19:03 Neut # (Auto) 8.31 K/uL (1.4-6.5) H 05/27/21 19:03 Lymph # (Auto) 0.96 K/uL (1.2-3.4) L 05/27/21 19:03 [place] # (Auto) 0.89 K/uL (0.11-0.59) H 05/27/21 19:03 Eos # (Auto) 0.03 K/uL (0-0.5) 05/27/21 19:03 Baso # (Auto) 0.02 K/uL (0-0.2) 05/27/21 19:03 Immature Gran # (Auto) 0.03 K/uL (0.00-0.02) H 05/27/21 19:03 PT 23.4 Seconds (9.0-12.0) H 05/27/21 21:35 INR 2.5 (0.9-1.1) H 05/27/21 21:35 Sodium 139 mmol/L (136-145) 05/27/21 19:03 Potassium 4.3 mmol/L (3.5-5.1) 05/27/21 19:03 Chloride 110 mmol/L (98-107) H 05/27/21 19:03 Carbon Dioxide 23 mmol/L (21-32) 05/27/21 19:03 Anion Gap 6.0 (3-11) 05/27/21 19:03 BUN 18 mg/dl (7-18) 05/27/21 19:03 Creatinine 0.89 mg/dl (0.6-1.4) 05/27/21 19:03 Est Cr Clr Drug Dosing 85.6 ml/min 05/27/21 19:03 Est GFR ( Amer) 101.1 ml/min 05/27/21 19:03 Est GFR (Non-Af Amer) 87.2 ml/min 05/27/21 19:03 BUN/Creatinine Ratio 20.5 (10-20) H 05/27/21 19:03 Glucose 104 mg/dl (70-99) H 05/27/21 19:03 Calcium 10.3 mg/dl (8.5-10.1) H 05/27/21 19:03 Total Bilirubin 0.4 mg/dl (0.2-1) 05/27/21 19:03 AST 27 U/L (15-37) 05/27/21 19:03 ALT 38 U/L (12-78) 05/27/21 19:03 Alkaline Phosphatase 66 U/L (45-117) 05/27/21 19:03 Total Protein 7.3 gm/dl (6.4-8.2) 05/27/21 19:03 Albumin 3.7 gm/dl (3.4-5.0) 05/27/21 19:03 Globulin 3.6 gm/dl (2.5-4.0) 05/27/21 19:03 Albumin/Globulin Ratio 1.0 (0.9-2) 05/27/21 19:03 Lipase 948 U/L (73-393) H 05/27/21 19:03 Urine Color Yellow 05/27/21 19:04 Urine Appearance Clear (Clear) 05/27/21 19:04 Urine pH 5.0 (4.5-7.5) 05/27/21 19:04 Ur Specific Mc[place]osh 1.029 (1.000-1.030) 05/27/21 19:04 Urine Protein Negative (Negative) 05/27/21 19:04 Urine Glucose (UA) Negative (Negative) 05/27/21 19:04 Urine Ketones Negative (Negative) 05/27/21 19:04 Urine Blood Negative (Negative) 05/27/21 19:04 Urine Nitrite Negative (Negative) 05/27/21 19:04 Urine Bilirubin Negative (Negative) 05/27/21 19:04 Urine Urobilinogen Negative (Negative) 05/27/21 19:04 Ur Leukocyte Esterase Negative (Negative) 05/27/21 19:04 COVID-19 Eval Order Covid19 at [facility] 05/27/21 22:09 SARS-CoV-2 (PCR) NEGATIVE (Negative) 05/27/21 22:09 Blood Type A Positive 05/27/21 21:36 Antibody Screen NEGATIVE 05/27/21 21:36 Crossmatch See Detail 05/27/21 21:36 Impressions Abdomen/Pelvis CT 05/27/21 20:02 CT SCAN OF THE ABDOMEN AND PELVIS WITH IV CONTRAST CLINICAL HISTORY: Generalized abdominal pain. Elevated lipase. COMPARISON STUDY: No priors. TECHNIQUE: Following the IV administration of 90 cc of Optiray 320, CT scan of the abdomen and pelvis is performed from the lung bases to the proximal femora. Images are reviewed in the axial, sagittal, and coronal planes. IV contrast was administered without complication. A dose lowering technique was utilized adhering to the principles of ALARA. CT DOSE: 750.40 mGy.cm FINDINGS: Lung bases: The heart is normal in size and without pericardial effusion. There are coronary artery calcifications. A tiny hiatal hernia is noted. There are scattered calcified granulomas. The lung bases are otherwise clear noting dependent atelectasis. Liver: The contrast-enhanced liver is normal in size, contour, and attenuation. There is no intrahepatic biliary ductal dilatation. The hepatic veins and portal veins are patent. Gallbladder: Unremarkable. Spleen: Normal in size and attenuation. Pancreas: Mildly atrophic and grossly unremarkable. Adrenal glands: Unremarkable. Kidneys: The contrast enhanced kidneys are normal in size and without hydronephrosis. The kidneys enhance symmetrically. 2 subcentimeter cortical hypodensities in the right kidney likely represent cysts but are too small for definitive characterization. Abdominal vasculature: The abdominal aorta is normal in course and caliber noting moderate atherosclerotic calcification. Bowel: There are scattered colonic diverticula without CT evidence of acute diverticulitis. No bowel obstruction is seen. A tiny duodenal diverticulum is incidentally noted. The appendix is well-visualized and normal. Peritoneum: There is no intraperitoneal free air or abdominal ascites. There is a fat-containing umbilical hernia. There is a large right rectus sheath hematoma with surrounding infiltration. This extends from the umbilicus in the pelvis and measures approximately 12.5 x 5 x 8.5 cm. This demonstrates foci of active extravasation is seen on image #353. There is trace intrapelvic extraperitoneal hemorrhage seen on axial image #394. Lymphadenopathy: None. Pelvic viscera: The bladder, prostate, and seminal vesicles are normal as visualized. Skeletal structures: There is mild to moderate lumbosacral spondylosis. No lytic or blastic lesions are seen. IMPRESSION: 1. There is a large right rectus sheath hematoma as detailed above with foci of active extravasation 2. There is trace intrapelvic extraperitoneal hemorrhage just deep to the rectus sheath hematoma. 3. No intraperitoneal hemorrhage is identified. 4. There is no CT evidence of acute pancreatitis as clinically queried. 5. Additional findings as above. ACT 112: Negative or not required by law. Electronically signed by: Jonny Padilla M.D. 05/27/2021 8:52 PM Code Status & VTE Plan VTE Prophylaxis Plan VTE Prophylaxis will be ordered: No Supervising Physician Co-Signing Physician Notes Attending addendum: I have physically seen this patient, have supervised the medical residents activities, and agree with the H&P unless as otherwise noted. Assessment and Plan: Rectus sheath hematoma with active extravasation- Reverse INR 2.5 with vitamin K 10 mg IV, and follow serially H&H every 6 hours Hold warfarin Protonix IV Ceftriaxone 1 g IV daily General surgery has been consulted and aware of the patient Remaining orders and notations as noted Resident Activity Tracking Resident Involvement: Resident Care Provided Care Provided: Adult Hospital Medicine
[2021-05-28] MEDS ORDERED: NITROGLYCERIN SL 0.4 MG/TAB TAB SL PRN (00:54)
[2021-05-28] MEDS ORDERED: ONDANSETRON INJ 2 MG/ML 2 ML VIAL IV PRN (00:54)
[2021-05-28] MEDS ORDERED: cefTRIAXone SODIUM 1,000 MG in DEXTROSE 5% 50 ML IV SCH (00:54)
[2021-05-28] MEDS ORDERED: ACETAMINOPHEN 325 MG TAB PO PRN (00:54)
[2021-05-28 01:24] LABS: Hematocrit (blood only) 42.8 % (42-52); Hemoglobin 14.5 g/dL (14.0-18.0)
[2021-05-28] MEDS: cefTRIAXone SODIUM 2,000 MG in DEXTROSE 5% 50 ML IV SCH (02:07)
[2021-05-28] MEDS: PANTOprazole 40 MG in SYRINGE 0 ML IV SCH ×4 (02:07→20:24)
[2021-05-28 02:11] LABS: INR 1.9 (0.9-1.1); Prothrombin Time 18.4 Seconds (9.0-12.0)
[2021-05-28 07:09] LABS: Basophils # (auto) 0.02 K/uL (0-0.2); Basophils % (auto) 0.3 %; Eosinophils # (auto) 0.07 K/uL (0-0.5); Eosinophils % (auto) 0.9 %; Hematocrit (blood only) 39.9 % (42-52); Hemoglobin 13.8 g/dL (14.0-18.0); Immature Granulocytes # (auto) 0.01 K/uL (0.00-0.02); Immature Granulocytes % (auto) 0.1 %; Lymphocytes # (auto) 0.96 K/uL (1.2-3.4); Lymphocytes % (auto) 12.2 %; Mean Corpuscular Hemoglobin 33.4 pg (25-34); Mean Corpuscular Hgb Conc 34.6 g/dL (32-36); Mean Corpuscular Volume 96.6 fL (80-100); Monocytes # (auto) 0.98 K/uL (0.11-0.59); Monocytes % (auto) 12.5 %; Platelet Count 208 K/uL (130-400); RDW Coefficient of Variation 13.3 % (11.5-14.5); RDW Standard Deviation 46.5 fL (36.4-46.3); Red Blood Count 4.13 M/uL (4.7-6.1); White Blood Count 7.84 K/uL (4.8-10.8)
[2021-05-28 07:45] LABS: BUN Creatinine Ratio 16.2 (10-20); Calcium 9.4 mg/dl (8.5-10.1); Creatinine Clr Calc Pharmacy 83.1 ml/min; Est GFR (Non-African American) 84.6 ml/min; Potassium 3.9 mmol/L (3.5-5.1)
[2021-05-28] MEDS: ESCITALOPRAM OXALATE 10 MG TAB PO SCH ×2 (07:54→07:59)
[2021-05-28] MEDS: buPROPion XL 150 MG TABCR PO SCH ×2 (07:54→07:59)
[2021-05-28] MEDS ORDERED: PHYTONADIONE 5 MG TAB PO STA (10:42)
--- NOTE | 2021-05-28 10:53 | Hospitalist Progress Note ---
Date of Service May 28, 2021 Assessment & Plan (1) Rectus sheath hematoma: Plan: Patient presents to the hospital on account of abdominal pain. CT scan of the abdomen and pelvis shows evidence of rectus sheath hematoma. Patient on Coumadin at home for PE, will hold. Already received vitamin K 10 mg in the ED yesterday with INR trending down. INR this morning 1.9, will give another 5 mg of oral vitamin K Recheck INR Also recheck CT scan of the abdomen tomorrow morning to monitor hematoma (2) Chronic anticoagulation: Plan: On Coumadin at home, currently on hold in view of hematoma (3) Depression: Plan: Continue home medications (4) Pulmonary embolism: Plan: On Coumadin at home. Currently on hold in view of hematoma Admission and Anticipated Discharge Date Admission Date: May 27, 2021 Subjective Patient seen and examined today, states his abdominal pain is much better Review of Systems Review of Systems: All systems reviewed are negative, apart from the ones contained in the history. Physical Exam Physical Exam: The patient is awake, alert and oriented 3, well developed and well nourished, normocephalic and atraumatic, lying in bed and in no acute distress. HEENT--PERRL, EOMI, mucous membranes and oropharynx mildly dry Neck--supple. No JVD. No bruits. Thyroid normal, trachea midline, no adenopathy. Heart--normal S1 and S2. No murmurs, rubs or gallops. Lungs--clear bilaterally, no respiratory distress, no accessory muscle use. Abdomen--normal bowel sounds and soft. Mild epigastric and left sided abdominal pain, mild abdominal tenderness Extremities--no cyanosis or clubbing. No edema. Dermatologic--normal skin turgor, normal color, no abnormal lymph nodes, no rash. Neurologic--cranial nerves II through XII grossly intact. Rheumatologic--normal range of motion. Psychiatric--normal affect. Results & Data Results & Data ([facility]) Vital Signs (Past 12 Hours) Vital Signs Temp Pulse Pulse Resp BP BP Pulse Ox 05/28/21 07:02 97.7 F 50 L 19 118/66 92 05/28/21 04:00 97.9 F 46 L 16 116/69 92 05/28/21 00:54 97.3 F L 49 L 16 145/80 H 95 05/28/21 00:21 47 L 18 148/87 H 93 Laboratory Results Laboratory Results - last 24 hr 05/27/21 05/27/21 05/27/21 19:03 19:03 19:04 WBC 10.24 RBC 4.53 L Hgb 15.0 Hct 43.6 MCV 96.2 MCH 33.1 MCHC 34.4 RDW Std Deviation 46.2 RDW Coeff of Sammy 13.2 Plt Count 246 MPV 10.1 Immature Gran % (Auto) 0.3 Neut % (Auto) 81.1 Lymph % (Auto) 9.4 [place] % (Auto) 8.7 Eos % (Auto) 0.3 Baso % (Auto) 0.2 Neut # (Auto) 8.31 H Lymph # (Auto) 0.96 L [place] # (Auto) 0.89 H Eos # (Auto) 0.03 Baso # (Auto) 0.02 Immature Gran # (Auto) 0.03 H PT INR Sodium 139 Potassium 4.3 Chloride 110 H Carbon Dioxide 23 Anion Gap 6.0 BUN 18 Creatinine 0.89 Est Cr Clr Drug Dosing 85.6 Est GFR ( Amer) 101.1 Est GFR (Non-Af Amer) 87.2 BUN/Creatinine Ratio 20.5 H Glucose 104 H Calcium 10.3 H Total Bilirubin 0.4 AST 27 ALT 38 Alkaline Phosphatase 66 Total Protein 7.3 Albumin 3.7 Globulin 3.6 Albumin/Globulin Ratio 1.0 Lipase 948 H Urine Color Yellow Urine Appearance Clear Urine pH 5.0 Ur Specific [place] 1.029 Urine Protein Negative Urine Glucose (UA) Negative Urine Ketones Negative Urine Blood Negative Urine Nitrite Negative Urine Bilirubin Negative Urine Urobilinogen Negative Ur Leukocyte Esterase Negative COVID-19 Eval Order SARS-CoV-2 (PCR) Hepatitis C Ab Screen Blood Type Antibody Screen Crossmatch 05/27/21 05/27/21 05/27/21 21:35 21:36 22:09 WBC RBC Hgb Hct MCV MCH MCHC RDW Std Deviation RDW Coeff of Sammy Plt Count MPV Immature Gran % (Auto) Neut % (Auto) Lymph % (Auto) [place] % (Auto) Eos % (Auto) Baso % (Auto) Neut # (Auto) Lymph # (Auto) [place] # (Auto) Eos # (Auto) Baso # (Auto) Immature Gran # (Auto) PT 23.4 H INR 2.5 H Sodium Potassium Chloride Carbon Dioxide Anion Gap BUN Creatinine Est Cr Clr Drug Dosing Est GFR ( Amer) Est GFR (Non-Af Amer) BUN/Creatinine Ratio Glucose Calcium Total Bilirubin AST ALT Alkaline Phosphatase Total Protein Albumin Globulin Albumin/Globulin Ratio Lipase Urine Color Urine Appearance Urine pH Ur Specific [place] Urine Protein Urine Glucose (UA) Urine Ketones Urine Blood Urine Nitrite Urine Bilirubin Urine Urobilinogen Ur Leukocyte Esterase COVID-19 Eval Order Covid19 at [facility] SARS-CoV-2 (PCR) Hepatitis C Ab Screen Blood Type A Positive Antibody Screen NEGATIVE Crossmatch See Detail 05/27/21 05/28/21 05/28/21 22:09 01:18 01:18 WBC RBC Hgb 14.5 Hct 42.8 MCV MCH MCHC RDW Std Deviation RDW Coeff of Sammy Plt Count MPV Immature Gran % (Auto) Neut % (Auto) Lymph % (Auto) [place] % (Auto) Eos % (Auto) Baso % (Auto) Neut # (Auto) Lymph # (Auto) [place] # (Auto) Eos # (Auto) Baso # (Auto) Immature Gran # (Auto) PT 18.4 H INR 1.9 H Sodium Potassium Chloride Carbon Dioxide Anion Gap BUN Creatinine Est Cr Clr Drug Dosing Est GFR ( Amer) Est GFR (Non-Af Amer) BUN/Creatinine Ratio Glucose Calcium Total Bilirubin AST ALT Alkaline Phosphatase Total Protein Albumin Globulin Albumin/Globulin Ratio Lipase Urine Color Urine Appearance Urine pH Ur Specific [place] Urine Protein Urine Glucose (UA) Urine Ketones Urine Blood Urine Nitrite Urine Bilirubin Urine Urobilinogen Ur Leukocyte Esterase COVID-19 Eval Order SARS-CoV-2 (PCR) NEGATIVE Hepatitis C Ab Screen Blood Type Antibody Screen Crossmatch 05/28/21 05/28/21 05/28/21 01:18 06:49 06:49 WBC 7.84 RBC 4.13 L Hgb 13.8 L Hct 39.9 L MCV 96.6 MCH 33.4 MCHC 34.6 RDW Std Deviation 46.5 H RDW Coeff of Sammy 13.3 Plt Count 208 MPV 10.0 Immature Gran % (Auto) 0.1 Neut % (Auto) 74.0 Lymph % (Auto) 12.2 [place] % (Auto) 12.5 Eos % (Auto) 0.9 Baso % (Auto) 0.3 Neut # (Auto) 5.80 Lymph # (Auto) 0.96 L [place] # (Auto) 0.98 H Eos # (Auto) 0.07 Baso # (Auto) 0.02 Immature Gran # (Auto) 0.01 PT INR Sodium 138 Potassium 3.9 Chloride 109 H Carbon Dioxide 27 Anion Gap 2.0 L BUN 15 Creatinine 0.92 Est Cr Clr Drug Dosing 83.1 Est GFR ( Amer) 98.0 Est GFR (Non-Af Amer) 84.6 BUN/Creatinine Ratio 16.2 Glucose 103 H Calcium 9.4 Total Bilirubin AST ALT Alkaline Phosphatase Total Protein Albumin Globulin Albumin/Globulin Ratio Lipase Urine Color Urine Appearance Urine pH Ur Specific [place] Urine Protein Urine Glucose (UA) Urine Ketones Urine Blood Urine Nitrite Urine Bilirubin Urine Urobilinogen Ur Leukocyte Esterase COVID-19 Eval Order SARS-CoV-2 (PCR) Hepatitis C Ab Screen Neg Blood Type Antibody Screen Crossmatch Diagnostic Findings Abdomen/Pelvis CT 05/27/21 20:02 CT SCAN OF THE ABDOMEN AND PELVIS WITH IV CONTRAST CLINICAL HISTORY: Generalized abdominal pain. Elevated lipase. COMPARISON STUDY: No priors. TECHNIQUE: Following the IV administration of 90 cc of Optiray 320, CT scan of the abdomen and pelvis is performed from the lung bases to the proximal femora. Images are reviewed in the axial, sagittal, and coronal planes. IV contrast was administered without complication. A dose lowering technique was utilized adhering to the principles of ALARA. CT DOSE: 750.40 mGy.cm FINDINGS: Lung bases: The heart is normal in size and without pericardial effusion. There are coronary artery calcifications. A tiny hiatal hernia is noted. There are scattered calcified granulomas. The lung bases are otherwise clear noting dependent atelectasis. Liver: The contrast-enhanced liver is normal in size, contour, and attenuation. There is no intrahepatic biliary ductal dilatation. The hepatic veins and portal veins are patent. Gallbladder: Unremarkable. Spleen: Normal in size and attenuation. Pancreas: Mildly atrophic and grossly unremarkable. Adrenal glands: Unremarkable. Kidneys: The contrast enhanced kidneys are normal in size and without hydronephrosis. The kidneys enhance symmetrically. 2 subcentimeter cortical hypodensities in the right kidney likely represent cysts but are too small for definitive characterization. Abdominal vasculature: The abdominal aorta is normal in course and caliber noting moderate atherosclerotic calcification. Bowel: There are scattered colonic diverticula without CT evidence of acute diverticulitis. No bowel obstruction is seen. A tiny duodenal diverticulum is incidentally noted. The appendix is well-visualized and normal. Peritoneum: There is no intraperitoneal free air or abdominal ascites. There is a fat-containing umbilical hernia. There is a large right rectus sheath hematoma with surrounding infiltration. This extends from the umbilicus in the pelvis and measures approximately 12.5 x 5 x 8.5 cm. This demonstrates foci of active extravasation is seen on image #353. There is trace intrapelvic extraperitoneal hemorrhage seen on axial image #394. Lymphadenopathy: None. Pelvic viscera: The bladder, prostate, and seminal vesicles are normal as visualized. Skeletal structures: There is mild to moderate lumbosacral spondylosis. No lytic or blastic lesions are seen. IMPRESSION: 1. There is a large right rectus sheath hematoma as detailed above with foci of active extravasation 2. There is trace intrapelvic extraperitoneal hemorrhage just deep to the rectus sheath hematoma. 3. No intraperitoneal hemorrhage is identified. 4. There is no CT evidence of acute pancreatitis as clinically queried. 5. Additional findings as above. ACT 112: Negative or not required by law. Electronically signed by: Jonny Padilla M.D. 05/27/2021 8:52 PM PG Care Time/CCT Total # of Minutes Spent Total Time Spent with Patient: Total time spent is greater than 50% in coordination of care (as documented) at patient's floor/unit and/or counseling patient: Coding Level of Care Code 49061 Subseq Hosp Care Lvl 2 Diagnoses Rectus sheath hematoma S30.1XXA Encounter type: initial encounter Chronic anticoagulation Z79.01 Depression F32.A Pulmonary embolism I26.99 (1) Rectus sheath hematoma Encounter type: initial encounter Qualified Code(s): S30.1XXA - Contusion of abdominal wall, initial encounter
[2021-05-28] MEDS ORDERED: ATORVASTATIN 20 MG TAB PO SCH (21:00)
--- NOTE | 2021-05-28 23:37 | Billing Data ---
Date of Service May 28, 2021 Coding Level of Care Code 74319 Initial Inpt Care Lvl 3
[2021-05-29] MEDS: cefTRIAXone SODIUM 2,000 MG in DEXTROSE 5% 50 ML IV SCH (02:09)
--- NOTE | 2021-05-29 07:55 | Surgery Progress Note ---
Date of Service May 29, 2021 Assessment & Plan (1) Rectus sheath hematoma: Plan: Diet advanced to regular He is stable from a surgical standpoint and could be discharged home Resumption of anticoagulation could be started more likely tomorrow at low-dose I would try to avoid Lovenox and Coumadin together as I do feel he would be at increased risk for bleeding Consider discussion with Dr. Wright-from our coag clinic or the coag clinic he currently uses No indication for surgery Admission and Anticipated Discharge Date Admission Date: May 27, 2021 Subjective Patient awake and alert no distress Just very mild right abdominal discomfort when he gets up and moves around His hematocrit showed a very slight drop without evidence of active bleeding over 24 hours Review of Systems Constitutional: no fever and no chills Eyes: no diplopia Ear, Nose, Mouth, Throat: no ear pain and no sore throat Respiratory: no dyspnea Cardiovascular: no chest pain, no palpitations, no lightheadedness and no syncope Gastrointestinal: + abdominal pain; no nausea and no vomiting Genitourinary: no dysuria Integumentary: no rash Neurologic: no localized weakness Physical Exam Physical Exam: Patient awake and alert in no distress Constitutional: well developed and well nourished; no acute distress Eyes: + anicteric sclerae Respiratory: normal respiratory effort; no respiratory distress Cardiovascular: Rate/Rhythm: regular rate Gastrointestinal (Abdomen): Percussion/Palpation: abdomen soft Musculoskeletal: Gait: normal gait Skin: no rashes, warm and dry Neurologic: awake Psychiatric: Orientation: alert Results & Data ([facility]) Vital Signs (Past 12 Hours) Vital Signs Temp Pulse Pulse Resp BP Pulse Ox 05/29/21 07:43 40 L 05/29/21 04:05 37 C 48 L 14 124/68 94 05/28/21 23:15 37.3 C 43 L 18 114/68 93 05/28/21 23:00 44 L Laboratory Results I reviewed his morning laboratories PG Care Time/CCT Total # of Minutes Spent Total Time Spent with Patient: Total time spent is greater than 50% in coordination of care (as documented) at patient's floor/unit and/or counseling patient: Coding Level of Care Code 27213 Inpt Consult Level 3 Diagnoses Rectus sheath hematoma S30.1XXA Encounter type: initial encounter (1) Rectus sheath hematoma Encounter type: initial encounter Qualified Code(s): S30.1XXA - Contusion of abdominal wall, initial encounter
[2021-05-29] MEDS: ESCITALOPRAM OXALATE 10 MG TAB PO SCH (07:58)
[2021-05-29] MEDS: buPROPion XL 150 MG TABCR PO SCH (07:58)
[2021-05-29] MEDS: PANTOprazole 40 MG in SYRINGE 0 ML IV SCH (07:58)
[2021-05-29 08:02] LABS: INR 1.1 (0.9-1.1); Prothrombin Time 10.9 Seconds (9.0-12.0)
[2021-05-29 08:38] LABS: Hematocrit (blood only) 40.8 % (42-52); Hemoglobin 14.2 g/dL (14.0-18.0); Mean Corpuscular Hemoglobin 33.5 pg (25-34); Mean Corpuscular Hgb Conc 34.8 g/dL (32-36); Mean Corpuscular Volume 96.2 fL (80-100); Mean Platelet Volume 10.5 fL (7.4-10.4); Platelet Count 226 K/uL (130-400); RDW Standard Deviation 45.3 fL (36.4-46.3); Red Blood Count 4.24 M/uL (4.7-6.1); White Blood Count 6.97 K/uL (4.8-10.8)
--- NOTE | 2021-05-29 14:40 | CT Scan Report ---
CT abd pelvis wo con CLINICAL HISTORY: Follow-up rectus sheath hematoma. Abdominal pain COMPARISON STUDY: 05/27/2021 CT DOSE: 973.25 mGycm TECHNIQUE: Standard CT of the Abdomen and Pelvis was performed without IV contrast. The patient did not receive oral contrast. A dose lowering technique was utilized adhering to the principles of FAROOQ Davila. FINDINGS: Compared to the previous examination, there is again evidence for a large right rectal mcfarland th hematoma which continues to demonstrate active extravasation with increased attenuation present wi thin its substance. However, it is not significantly changed in size measuring approximately 12.1 x 8 .8 x 5.1 cm in the current study. There is again no evidence for extension of hemorrhage intra-abdomi adriana. Lung base: The lung bases are clear. Abdominal cavity: There is no evidence for abdominal mass, adenopathy or ascites. Small umbilical her saran is again seen. Liver: The liver is homogeneous in attenuation on these limited noncontrast images.. Spleen: The spleen is homogeneous in attenuation on these limited noncontrast images. Pancreas: The pancreas is homogeneous in attenuation on these limited noncontrast images. Gall Bladder: The gallbladder is well distended with no evidence for cholelithiasis, wall thickening or pericholecystic edema.. Adrenal glands: The adrenal glands are normal in size and attenuation on these limited noncontrast im ages. Kidneys: The kidneys are homogeneous in attenuation on these limited noncontrast images. There is no evidence for gross renal mass, calculus or hydronephrosis bilaterally. Bowel: Evidence for very small sliding-type hernia is again seen. The bowel loops are normally placed within the abdomen and pelvis without evidence for dilatation or obstruction. There is no evidence f or mass lesion. There are no inflammatory changes present. There is no evidence for free air. There i s a normal appendix in the right lower quadrant. Bladder: There is no evidence for focal bladder wall thickening, calculus or diverticulum. : There is no evidence for pelvic mass or adenopathy. Vasculature: There is no evidence for focal aneurysmal dilatation of the abdominal aorta. Mild athero sclerotic calcification is again seen. Osseous structures: There is no acute osseous pathology. Degenerative changes are again seen within t he spine. IMPRESSION: 1. Compared to previous examination, there is no significant change in size of previously identified right rectal sheath hematoma. However, there is evidence for continued extravasation into the hematom a with increased attenuation density present. 2. No other acute intra-abdominal or pelvic abnormality on these limited noncontrast images. 3. Additional nonacute findings are consistent above. ACT 112: Negative or not required by law. Electronically signed by: Alex Richardson M.D. 05/29/2021 2:39 PM
--- NOTE | 2021-05-29 14:43 | Hospitalist Progress Note ---
Date of Service May 29, 2021 Assessment & Plan (1) Rectus sheath hematoma: Plan: Repeat CT has been done, official read pending Patient feels better Hb is stable If there's no increase in the hematoma, patient may be able to be discharged home (2) DVT (deep venous thrombosis): Plan: Hx of DVT and PE, on coumadin at home. Currently on hold in view of rectus sheath hematoma (3) Chronic anticoagulation: (4) Hyperlipidemia: (5) Depression: Plan: continue home medications Admission and Anticipated Discharge Date Admission Date: May 27, 2021 Subjective Patient seen and examined today, says his abdominal pain is almost gone, awaiting repeat Ct abdomen Review of Systems Review of Systems: All systems reviewed are negative, apart from the ones contained in the history. Physical Exam Physical Exam: The patient is awake, alert and oriented 3, well developed and well nourished, normocephalic and atraumatic, lying in bed and in no acute distress. HEENT--PERRL, EOMI, mucous membranes and oropharynx mildly dry Neck--supple. No JVD. No bruits. Thyroid normal, trachea midline, no adenopathy. Heart--normal S1 and S2. No murmurs, rubs or gallops. Lungs--clear bilaterally, no respiratory distress, no accessory muscle use. Abdomen--normal bowel sounds and soft. Mild epigastric and left sided abdominal pain, mild abdominal tenderness Extremities--no cyanosis or clubbing. No edema. Dermatologic--normal skin turgor, normal color, no abnormal lymph nodes, no rash. Neurologic--cranial nerves II through XII grossly intact. Rheumatologic--normal range of motion. Psychiatric--normal affect. Results & Data Results & Data ([facility]) Vital Signs (Past 12 Hours) Vital Signs Temp Pulse Pulse Resp BP Pulse Ox 05/29/21 12:13 98.2 F 75 20 108/69 96 05/29/21 08:10 98.2 F 76 18 118/89 99 05/29/21 07:43 40 L 05/29/21 04:05 98.6 F 48 L 14 124/68 94 Diagnostic Findings Laboratory Results - last 24 hr 05/29/21 05/29/21 06:58 06:58 WBC 6.97 RBC 4.24 L Hgb 14.2 Hct 40.8 L MCV 96.2 MCH 33.5 MCHC 34.8 RDW Std Deviation 45.3 RDW Coeff of Sammy 13.0 Plt Count 226 MPV 10.5 H PT 10.9 INR 1.1 PG Care Time/CCT Total # of Minutes Spent Total Time Spent with Patient: Total time spent is greater than 50% in coordination of care (as documented) at patient's floor/unit and/or counseling patient: Coding Level of Care Code 66713 Subseq Hosp Care Lvl 2 Diagnoses Rectus sheath hematoma S30.1XXA Encounter type: initial encounter DVT (deep venous thrombosis) I82.409 Chronic anticoagulation Z79.01 Hyperlipidemia E78.5 Depression F32.A (1) Rectus sheath hematoma Encounter type: initial encounter Qualified Code(s): S30.1XXA - Contusion of abdominal wall, initial encounter
--- NOTE | 2021-05-29 15:55 | Discharge Summary ---
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 He states that approximately a month ago he was lifting and moving logs and felt a sharp tearing pain in his right lower quadrant. The pain went away and he thought nothing of it at that time. He continued to have some pain at that location after twisting or moving around but did not find it to be particularly bothersome. He notes that today he started having severe right-sided abdominal pain as well as some nausea. He states that he has never had any issues with severe bleeding events while on Coumadin before. He denies any hematuria but does attest to having some black stools recently. He denies any dizziness or lightheadedness. He states the pain is a 6 out of 10 at rest and increases to a 7 or 8 out of 10 when actively moving. He denies any radiation of the pain and says that it is mostly on his right abdomen going down into his right suprapubic area. Principal Diagnosis Rectus Sheath hematoma Discharge Exam The patient is awake, alert and oriented 3, well developed and well nourished, normocephalic and atraumatic, lying in bed and in no acute distress. HEENT--PERRL, EOMI, mucous membranes and oropharynx mildly dry Neck--supple. No JVD. No bruits. Thyroid normal, trachea midline, no adenopathy. Heart--normal S1 and S2. No murmurs, rubs or gallops. Lungs--clear bilaterally, no respiratory distress, no accessory muscle use. Abdomen--normal bowel sounds and soft. Mild epigastric and left sided abdominal pain, mild abdominal tenderness Extremities--no cyanosis or clubbing. No edema. Dermatologic--normal skin turgor, normal color, no abnormal lymph nodes, no rash. Neurologic--cranial nerves II through XII grossly intact. Rheumatologic--normal range of motion. Psychiatric--normal affect. Discharge Data Allergies Allergy/AdvReac Type Severity Reaction Status Date / Time chlorhexidine Allergy Severe PRURITIS Verified 05/27/21 20:10 aspirin Allergy Unknown HIVES Verified 05/27/21 20:10 bee venom protein (honey bee) Allergy SWELLING Verified 05/27/21 20:10 Consultations 05/27/21 21:24 ED Decision to Admit Stat Ordered Studies 05/27/21 20:02 CT abd pelvis IV con only Stat 05/29/21 06:00 CT abd pelvis wo con Routine Hospital Course (1) Rectus sheath hematoma: Repeat CT has been done, it shows stable hematoma, Patient feels better Hb is stable He will be discharged home and asked to get a repeat CT abdomen and pelvis in a week Will hold coumadin till he sees his PCP with the result of the CT (2) DVT (deep venous thrombosis): Hx of DVT, on coumadin at home. Currently on hold in view of rectus sheath hematoma (3) Chronic anticoagulation: (4) Hyperlipidemia: (5) Depression: continue home medications Total Time Total Time Spent Total Time Spent (In Minutes): 35 min Discharge Plan Discharge Items Patient Disposition: Home - Self-Care Reason For Visit: RECTUS SHEATH HEMATOMA Discharge Diagnosis: Rectus sheath hematoma Condition on Discharge: Good Activity: As commented below Lifting: No more than 5 pounds Bathing: No limitations Exercise/Sports: Wait until after follow-up appointment Non-emergency contact: Primary Care Provider Call non-emergency contact if: you have any medication questions and your symptoms worsen Follow-up/Referrals: Iftikhar López [Primary Care Provider] - Diet: Regular Addtl Attending Provider Instructions: Please get the follow up CT scan and take the result to your PCP Resume your coumadin only after you see your PCP Pending Studies at Discharge: No Stand-Alone Forms: My [employer], Smoking Cessation Medications and DC Order Prescriptions: Continued atorvastatin 20 mg Tablet 20 mg PO HS RF: 0 escitalopram oxalate 10 mg tablet 10 mg PO DAILY RF: 0 bupropion HCl 150 mg tablet extended release 24 hr 150 mg PO DAILY RF: 0 Discontinued warfarin 5 mg tablet 5 mg PO DAILY RF: 0 warfarin 1 mg tablet 2 mg PO DAILY RF: 0 Discharge Orders: Discharge Order (Routine); Ordered 05/29/21 Ordered By: Shanice Logn Admission Data Admit Date/Time: 05/27/21 22:46 Attending Provider: Shanice Long Admit Provider: Katerina Betancourt Primary Care Provider: Iftikhar López Other Providers: Robinson Du Coding Level of Care Code D/C DAY MANAGEMENT >30 MINS Diagnoses Rectus sheath hematoma S30.1XXA Encounter type: initial encounter DVT (deep venous thrombosis) I82.409 Chronic anticoagulation Z79.01 Hyperlipidemia E78.5 Depression F32.A
== END 2021-05-29 17:13 | disposition home or self-care (01) | DRG 605 ==
LOC: ED 17:20 → 2S 22:46 → INTOOBSV 22:46 → SUATTDRO 22:46 → 2S 05-28 00:21